=== PATIENT | male | born 1975 | race Caucasian/White ===

== ENCOUNTER 2018-01-31 15:39 | Inpatient (IN) | payer BC ==
[~2018-01-31] VITALS: Ht 167.6 cm; Wt 73.9 kg
[2018-01-31 17:00] VITALS: BP 119/67
[2018-01-31] MEDS ORDERED: BISACODYL 10 MG SUPP PR PRN (17:45)
[2018-01-31] MEDS ORDERED: ONDANSETRON 4 MG TAB (S0181) PO PRN (17:45)
[2018-01-31] MEDS ORDERED: SENNA 8.6 MG TAB (SENOKOT) PO PRN (17:45)
[2018-01-31] MEDS ORDERED: traMADol 50 MG TAB PO PRN (18:15)
[2018-01-31] MEDS ORDERED: SENN8.6T17 PO (18:20)
[2018-01-31] MEDS ORDERED: ELIQ5TAB PO (18:20)
[2018-01-31] MEDS ORDERED: ASPI1CHW2 PO (18:20)
[2018-01-31] MEDS ORDERED: ATOR40TA75 PO (18:20)
[2018-01-31] MEDS ORDERED: COLA100C5 PO (18:20)
[2018-01-31] MEDS ORDERED: ACET1TAB55 PO (18:21)
[2018-01-31] MEDS ORDERED: FAMO40TA3 PO (18:21)
[2018-01-31] MEDS ORDERED: TRAM50TA2 PO (18:21)
[2018-01-31] MEDS ORDERED: LACTULOSE 20 GM/30 ML SYRUP UD PO ONE (18:30)
--- NOTE | 2018-01-31 18:57 | HPEPDOC ---
Pipe Organ Builder Note DATE OF ADMISSION: Jan 31, 2018 at 16:55 SOURCE OF ADMISSION INFORMATION: [facility] records and patient CHIEF COMPLAINT: stroke HISTORY OF PRESENT ILLNESS: 42M no significant pmh who on 01-28-18 had acute onset of right sided weakness, facial droop, and aphasia. He was brought to [facility] where he was given tPA and transferred to [facility] where CTA revealed a left MCA occlusion. He underwent a successful thrombectomy performed by neurosurgery, was placed on neurochecks, and given IV antihypertensive medications. Hypercoagulable panels were sent and he was noted to have a family history of brother with stroke at 36. He was made NPO and evaluated by speech therapy who initially placed him on ground solids and honey thickened liquids. CTH following TPA on 01-29-18 revealed "Well demarcated infarct in the left basal ganglia/caudate head and mass effect on the left frontal horn. No evidence of hemorrhagic conversion. No hydrocephalus". ECHO did not reveal a PFO and EKG from 01-29-18 revealed 1st degree AB block with sinus bradycardia. A LINQ recorder was placed for suspected Afib and he was placed on a 6 month course of Eliquis. His right sided weakness improved and he was deemed medically appropriate for discharge to ARU. REVIEW OF SYSTEMS: The following is a completed review of systems and has been reviewed. Review of systems otherwise unremarkable. PAIN: Patient self reports no pain EYES: Negative for acute vision changes EARS, NOSE, & THROAT: negative for hearing loss, rhinorrhea, +dysphagia CARDIOVASCULAR: denies chest pain or palpitations PULMONARY: Negative. Denies shortness of breath. GASTROINTESTINAL: +constipation GENITOURINARY: Negative for dysuria or hematuria NEUROLOGICAL: right facial droop, RUE paresis SKIN: no rash PSYCHIATRIC: Unremarkable All other review of systems found to be negative. PAST MEDICAL HISTORY: none PAST SURGICAL HISTORY: none ALLERGIES: Please see below. MEDICATIONS: Please see below. 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 GENERAL: Pleasant and cooperative. No acute distress. HEENT: PERRL. Extraocular movements intact. Clear conjunctiva CARDIOVASCULAR: Regular rate and rhythm. No murmurs, rubs, or gallops LUNGS: Clear to auscultation bilaterally. No wheezes. No rhonchi ABDOMEN: Soft, nontender, nondistended. Positive bowel sounds. Normal active bowel sounds NEUROLOGICAL: Alert and oriented times three. Cranial nerves II through XII grossly intact. Sensation grossly intact EXTREMITIES: 4+/5 strength right upper extremity 5/5 left upper extremity, 5-/5 strength right lower extremity. 5/5 strength in left lower extremity. SKIN: intact IMAGING: Imaging documentation personally reviewed by record FUNCTIONAL STATUS: Premorbid: Independent with ADLs and ambulation On admission: Min Assist for feeding, upper body dressing, toileting, grooming, Min assist ambulating without AD, but hand-held assist GOALS: Independent without AD in ambulation and ADLs, improve RUE fine motor skills, advance diet, medical optimization, family training, assess for DME. ASSESSMENT:42-year-old M with no past medical history who presents status post stroke PLAN: 1. 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 neuro: s/p left MCA stroke s/p tPA and thrombectomy with RUE hemiparesis and dysphagia-f/u Dr. Hart [phone] 4-6 weeks -hypercoagulopathy w/u pending, +family history of CVA -continue statin, BP management, and Eliquis-medicine consulted -Loop recorder in place 3. cardio: no pmh oh HTN, however was managed with IV anti-hypertensice in acute care setting, will start Amlodpine with parameters and monitor 4. Resp: incentive spirometry, will do noc-ox testing to check for OZZY 5. GI ppx: protonix and bowel meds for constipation 6. DVT ppx: f/u admisison dopplers, on Eliquis 5mg BID for 6 months 7. Pain: Tramadol prn 8. Dispo: TBd POST ADMISSION PHYSICIAN EVALUATION: Medical and functional status: Description of medical status, medical assess ment: As above. Rehabilitation diagnosis and current and prior cold morbid medical conditions as above. Risk of complications and plans to mitigate them as above. Description of functional status current status is as above. Prior status as above. Status compared to preadmission: There are no clinically significant differences between the patient's current status and the information described on the preadmission screening document. Treatment plan anticipated: Treatment plan is as described above. Required disciplines including physical therapy, occupational therapy, others as noted ab ove Intensity of services: 3 hours a day, 6 days a week. Special considerations: There are no specific special or safety considerations that would likely preclude immediate implementation of an intensive r ehabilitation program or subsequently influence the plan of care. ATTESTATION: Considering all the information above, it is my best judgment that this patient requires intensive rehabilitation therapy as described above and an inpatient hospital environment due to the complexity of nursing, medical, and rehabilitation needs required by the patient. Furthermore, this patient can re asonably be expected to participate in an benefit from an inpatient rehabilitation stay with an interdisciplinary team approach to the delivery of rehabilitation care under the direction and supervision of rehabilitation physician. PROGNOSIS: Excellent ESTIMATED LENGTH OF STAY:7-10 days. PROJECTED DISCHARGE DESTINATION: Home with family support and any durable medical equipment required to increase functional safety and mobility. TIME SPENT COUNSELING AND COORDINATING INITIAL CARE: Greater than 70 minutes. Vital Signs HR: 69 98.4 119/67 97% resp 16 Home Medications Scheduled (Aspirin) 81 Mg Chw, 81 MG PO DAILY, (Reported) Apixaban Base (Eliquis) 5 Mg Tab, 5 MG PO BID, (Reported) Atorvastatin Calcium (Atorvastatin Calcium) 40 Mg Tab, 40 MG PO QHS, (Reported) Docusate Sodium (Colace) 100 Mg Cap, 100 MG PO BID, (Reported) Famotidine (Famotidine) 40 Mg Tab, 40 MG PO QHS, (Reported) Senna (Senna Laxative) 8.6 Mg Tab, 1 TAB PO BID, (Reported) Scheduled PRN Acetaminophen (Acetaminophen) 325 Mg Tab, 650 MG PO Q4H PRN for PAIN, (Reported) Tramadol HCl (Tramadol HCl) 50 Mg Tab, 25 MG PO Q6H PRN for PAIN, (Reported) RIRI CLARK MD Jan 31, 2018 18:54
--- NOTE | 2018-01-31 19:30 | CR.PDOC ---
General Date of Consultation: Jan 31, 2018 Attending Physician: MIKI HARDY MD Consultation REASON FOR CONSULTATION/CHIEF COMPLAINT: Medical management. HISTORY OF PRESENT ILLNESS: Patient is a 42-year-old man with no past medical history who is status post infarctive stroke diagnosed 01/28/2018 with receivable right-sided weakness, facial droop and aphasia. He was transferred from us in our [facility]. where he will receive TPA transferred also to a [facility] gas. CTA revealed a left MCA occlusion. There he successfully underwent thrombectomy performed by the neurosurgeons. Patient now transferred to our hospital rehabilitation unit for further rehabilitation care. At interview, patient denies any subjective symptoms. ALLERGIES: Please see below. HOME MEDICATIONS: Please see below. PAST MEDICAL HISTORY: Per HPI PAST SURGICAL HISTORY: 1. Left MCA occlusion, status post thrombectomy FAMILY HISTORY: Father: Diagnosed with coronary artery disease Siblings: Brother diagnosed with stroke SOCIAL HISTORY: Lives with his girlfriend currently employed at a [employer] Denies alcohol, smoking and denies illicit drug use. REVIEW OF SYSTEMS: 12 point review of systems negative other than that described in the body of HPI PHYSICAL EXAMINATION: VITAL SIGNS: Please see below. GENERAL APPEARANCE: Young man, lying calmly in bed, not in any apparent distress. He is not pale, anicteric and afebrile. right facial droop and with left sided weakness. HEENT: Atraumatic. Neck: Supple. LUNGS: Clear to auscultation bilaterally. CARDIOVASCULAR: S1 and 2 heard, no murmurs, rubs or gallops. ABDOMEN: Obese, soft, not tender, not distended. Bowel sounds normoactive. MUSCULOSKELETAL: Apparently within normal limits EXTREMITIES: No pedal edema, 2+ bilateral pedal pulses noted. NEUROLOGICAL: Awake, alert, oriented 3. right facial droop and with left sided weakness. power in both Right upper and lower extremities 3/5 PSYCHIATRIC: Normal affect LABORATORY DATA: Please see below. ASSESSMENT/PLAN: 1. Continue current management. This patient will be followed by Dr. El. 2. Thank you for the opportunity to take care of the patient. Vital Signs/I&O Vital Signs Date Time Temp Pulse Resp B/P (MAP) Pulse Ox O2 Delivery O2 Flow Rate FiO2 01/31/18 17:00 98.4 69 16 119/67 (84) 97 Room Air Allergies Coded Allergies: No Known Allergies (Unverified , 01/31/18) Home Medications Scheduled (Aspirin) 81 Mg Chw, 81 MG PO DAILY, (Reported) Apixaban Base (Eliquis) 5 Mg Tab, 5 MG PO BID, (Reported) Atorvastatin Calcium (Atorvastatin Calcium) 40 Mg Tab, 40 MG PO QHS, (Reported) Docusate Sodium (Colace) 100 Mg Cap, 100 MG PO BID, (Reported) Famotidine (Famotidine) 40 Mg Tab, 40 MG PO QHS, (Reported) Senna (Senna Laxative) 8.6 Mg Tab, 1 TAB PO BID, (Reported) Scheduled PRN Acetaminophen (Acetaminophen) 325 Mg Tab, 650 MG PO Q4H PRN for PAIN, (Reported) Tramadol HCl (Tramadol HCl) 50 Mg Tab, 25 MG PO Q6H PRN for PAIN, (Reported) MIKI HARDY MD Jan 31, 2018 19:30
[2018-01-31 20:00] VITALS: BP 113/61
[2018-01-31] MEDS ORDERED: BISACODYL 10 MG SUPP PR ONE (20:30)
--- NOTE | 2018-01-31 20:34 | REPVR ---
EXAM: US Bilateral Duplex Lower Extremity Veins EXAM DATE/TIME: 01/31/2018 7:41 PM CLINICAL HISTORY: 42 years old, male; Signs and symptoms; Other: Immoblization TECHNIQUE: Real-time duplex ultrasound of the Bilateral Lower Extremities with 2-D martinez scale, color Doppler flow and spectral waveform analysis. Complete exam focused on the bilateral lower extremity veins. COMPARISON: No relevant prior studies available. FINDINGS: Right deep veins: Unremarkable. The common femoral, femoral and popliteal veins are patent without thrombus. Normal compressibility, augmentation response and Doppler waveforms. Right superficial veins: Saphenofemoral junction is patent without thrombus. Left deep veins: Unremarkable. The common femoral, femoral and popliteal veins are patent without thrombus. Normal compressibility, augmentation response and Doppler waveforms. Left superficial veins: Saphenofemoral junction is patent without thrombus. Soft tissues: Unremarkable. IMPRESSION: No acute findings. No evidence of deep vein thrombosis. Electronically signed by: Yulia Emerson On 01/31/2018 20:34:55 PM
[2018-01-31] MEDS: DOCUSATE SODIUM 100 MG CAP PO SCH (20:50)
[2018-01-31] MEDS: ATORVASTATIN 20 MG TAB PO SCH (20:50)
[2018-01-31] MEDS: APIXABAN 5 MG TAB (ELIQUIS) PO SCH (20:50)
[2018-01-31] MEDS: CHLORHEXIDINE GLUCONATE 0.12 % 15ML UDC (PERIDEX ORAL RINSE) MT SCH (20:50)
[2018-01-31] MEDS: traZODone 50 MG TAB PO PRN (20:57)
[2018-01-31] MEDS ORDERED: ATORVASTATIN 20 MG TAB PO SCH (21:00)
[2018-01-31] MEDS ORDERED: HEPARIN SOD (PORCINE) 5000 UNITS/ML VIAL SQ SCH (21:00)
[2018-01-31 21:14] LABS: AMORPHOUS SEDIMENT SMALL (NEGATIVE); APPEARANCE, URINE CLOUDY (CLEAR); BACTERIA, URINE AUTO NEGATIVE (NEGATIVE); BILIRUBIN, URINE AUTO NEGATIVE (NEGATIVE); BLOOD, URINE BLOOD NEGATIVE (NEGATIVE); COLOR, URINE YELLOW (YELLOW); GLUCOSE, URINE (UA) AUTO NEGATIVE (NEGATIVE); KETONE, URINE AUTO NEGATIVE (NEGATIVE); LEUKOCYTE ESTERASE, URINE AUTO NEGATIVE (NEGATIVE); MUCUS, URINE SMALL (NEGATIVE); NITRITE, URINE AUTO NEGATIVE (NEGATIVE); PROTEIN, URINE AUTO NEGATIVE (NEGATIVE); RBC, URINE AUTO 1 /HPF (0-3); SPECIFIC GRAVITY URINE AUTO 1.017 (1.002-1.035); SQUAMOUS EPITHELIAL CELL UR AU 0 /HPF (0-6); WBC, URINE AUTO 0 /HPF (0-3)
[2018-01-31] MEDS: ACETAMINOPHEN TAB 650MG DOSE (2X325MG) PO PRN (22:23)
[2018-02-01 06:00] VITALS: BP 129/59
[2018-02-01 06:39] LABS: BASO % 0.5 % (0.0-1.0); EOS # 0.1 10^3/uL (0.0-0.50); EOS % 1.9 % (0.0-3.0); HEMATOCRIT 36.5 % (42.0-52.0); LYMPH % 31.9 % (24.0-44.0); MEAN CORPUSCULAR HEMOGLOBIN 33.4 pg (27.0-33.0); MEAN CORPUSCULAR HGB CONC 35.6 g/dl (32.0-36.5); MEAN CORPUSCULAR VOLUME 93.8 fl (80.0-96.0); MONO # 0.5 10^3/uL (0.0-0.8); MONO % 7.1 % (0.0-5.0); NEUTROPHILS # 3.7 10^3/uL (1.8-7.7); NEUTROPHILS % 58.1 % (36.0-66.0); PLATELET COUNT, AUTOMATED 208 10^3/uL (150-450); RED BLOOD COUNT 3.89 10^6/uL (4.30-6.10); WHITE BLOOD COUNT 6.3 10^3/uL (4.0-10.0)
[2018-02-01 07:06] LABS: ALBUMIN 3.3 GM/DL (3.2-5.2); ALT/SGPT 28 U/L (12-78); BILIRUBIN,TOTAL 0.6 MG/DL (0.2-1.0); BLOOD UREA NITROGEN 16 MG/DL (7-18); CALCIUM LEVEL 8.5 MG/DL (8.5-10.1); CARBON DIOXIDE LEVEL 29 MEQ/L (21-32); CHLORIDE LEVEL 109 MEQ/L (98-107); CREATININE FOR GFR 1.09 MG/DL (0.70-1.30); GLOMERULAR FILTRATION RATE > 60.0 (>60); GLUCOSE, FASTING 96 MG/DL (70-100); POTASSIUM SERUM 3.6 MEQ/L (3.5-5.1); SODIUM LEVEL 144 MEQ/L (136-145); TOTAL PROTEIN 6.1 GM/DL (6.4-8.2)
[2018-02-01] MEDS: amLODIPine 5 MG TAB PO SCH (08:35)
[2018-02-01] MEDS: APIXABAN 5 MG TAB (ELIQUIS) PO SCH ×2 (08:35→20:43)
[2018-02-01] MEDS: PANTOPRAZOLE 40MG TAB (PROTONIX) PO SCH (08:35)
[2018-02-01] MEDS: CHLORHEXIDINE GLUCONATE 0.12 % 15ML UDC (PERIDEX ORAL RINSE) MT SCH ×2 (08:36→20:43)
[2018-02-01] MEDS: DOCUSATE SODIUM 100 MG CAP PO SCH ×2 (08:36→21:00)
[2018-02-01] MEDS ORDERED: ASPIRIN 81 MG CHEW TABLET GT SCH (09:00)
--- NOTE | 2018-02-01 10:23 | NUR ---
Pt seen for cognitive/linguistic evaluation and clinical bedside swallow evaluation d/t admission to [facility] s/p CVA on 01/28/18. Pt. presents within normal limits for swallow function. No overt s/s of aspiration/penetration observed. Pt reported that he was eating regular solids and drinking regular thin liquids before transfer. Recommend: Regular solids and thin liquids. Pt presents with mild cog/ling deficits in the domains of memory, sequencing, judgement and reasoning. Speech therapy recommended. Addendum: 02/01/18 at 1027 by ELMER FRIEDMAN [facility] SP Amended: Links added.
[2018-02-01 14:00] VITALS: BP 108/61
--- NOTE | 2018-02-01 18:10 | IPN ---
DATE: 02/01/2018 SUBJECTIVE: Patient is seen and examined in the room today. Patient denied any acute complaints. Patient still feels there is residual weakness of the right upper extremity, but he denies any difficulty with swallowing. OBJECTIVE: VITAL SIGNS: Temperature 98.1, pulse 73, respirations 18, blood pressure 129/59, pulse oximetry 97% in room air. GENERAL: No sign of acute distress. Patient is alert, awake, comfortable. HEENT: Normocephalic, atraumatic. Extraocular motor grossly intact. CARDIOVASCULAR: Positive S1, S2, regular rate. LUNGS: Clear to auscultation bilaterally. ABDOMEN: Soft, nontender, nondistended. Bowel sounds present. EXTREMITIES: No edema appreciated. NEUROLOGIC: No right-sided facial droop noted. Muscle strength 5/5 bilaterally. Sensation to fine touch grossly intact. LABORATORY DATA: WBC 6.3, hemoglobin 13, hematocrit 36.5, platelet count is 208. Sodium is 144, potassium 3.6, chloride 109, carbon dioxide 29, BUN 16, creatinine 1.09, GFR greater than 60, fasting glucose 96, calcium 8.5. Total bilirubin 0.6, AST 18, ALT 28, alkaline phosphatase 33, total protein 6.1, albumin 3.3. ASSESSMENT AND PLAN: 1. Left middle cerebral artery (MCA) stroke, status post tPA and thrombectomy. Continue acute rehabilitation. On aspirin, Lipitor, Eliquis. 2. Deep vein thrombosis (DVT) prophylaxis, on Eliquis.
[2018-02-01 20:00] VITALS: BP 101/58
[2018-02-01] MEDS: ATORVASTATIN 20 MG TAB PO SCH (20:42)
[2018-02-01] MEDS: traZODone 50 MG TAB PO PRN (20:42)
[2018-02-01] MEDS: ACETAMINOPHEN TAB 650MG DOSE (2X325MG) PO PRN (22:46)
[2018-02-02 06:00] VITALS: BP 112/60
[2018-02-02] MEDS: APIXABAN 5 MG TAB (ELIQUIS) PO SCH ×2 (08:50→20:25)
[2018-02-02] MEDS: ASPIRIN 81 MG CHEW TABLET PO SCH (08:50)
[2018-02-02] MEDS: DOCUSATE SODIUM 100 MG CAP PO SCH ×2 (08:50→20:26)
[2018-02-02] MEDS: amLODIPine 5 MG TAB PO SCH (08:50)
[2018-02-02] MEDS: CHLORHEXIDINE GLUCONATE 0.12 % 15ML UDC (PERIDEX ORAL RINSE) MT SCH ×2 (08:50→20:27)
[2018-02-02] MEDS: PANTOPRAZOLE 40MG TAB (PROTONIX) PO SCH (08:51)
[2018-02-02 14:00] VITALS: BP 121/69
--- NOTE | 2018-02-02 17:53 | IPNPDOC ---
Text Note Date of Service The patient was seen on 02/02/18. NOTE SUBJECTIVE: Patient is seen and examined in the room today. Patient denied any acute complaints. Denies any difficulty with swallowing. He feels right upper extremity weakness is improving. OBJECTIVE: VITAL SIGNS: Listed below. GENERAL: No sign of acute distress. Patient is alert, awake, comfortable. HEENT: Normocephalic, atraumatic. Extraocular motor grossly intact. CARDIOVASCULAR: Positive S1, S2, regular rate. LUNGS: Clear to auscultation bilaterally. ABDOMEN: Soft, nontender, nondistended. Bowel sounds present. EXTREMITIES: No edema appreciated. NEUROLOGIC: No right-sided facial droop noted. Muscle strength 5/5 bilaterally. Sensation to fine touch grossly intact. LABORATORY DATA: Listed below. ASSESSMENT AND PLAN: #. Left middle cerebral artery (MCA) stroke, - Status post tPA and thrombectomy. - Continue acute rehabilitation. On aspirin, Lipitor, Eliquis. # Sinus bradycardia with first degree AV block. Asymptomatic # Rule of A fibrillation. Loop recorder in place. On eliquis. #. Deep vein thrombosis (DVT) prophylaxis, on Eliquis. VS,Fishbone, I+O VS, Fishbone, I+O Vital Signs Date Time Temp Pulse Resp B/P (MAP) Pulse Ox O2 Delivery O2 Flow Rate FiO2 02/02/18 14:00 98.7 60 18 121/69 (86) 97 Room Air I&O- Last 24 Hours up to 6 AM 02/02/18 06:00 Intake Total 600 ml Balance 600 ml CLIFF GONSALEZ DO Feb 02, 2018 17:53
[2018-02-02 20:00] VITALS: BP 112/66
[2018-02-02] MEDS: traZODone 50 MG TAB PO PRN (20:25)
[2018-02-02] MEDS: ATORVASTATIN 20 MG TAB PO SCH (20:25)
[2018-02-02] MEDS: ACETAMINOPHEN TAB 650MG DOSE (2X325MG) PO PRN (22:47)
[2018-02-03 06:00] VITALS: BP 90/68
[2018-02-03 06:57] LABS: HEMATOCRIT 33.4 % (42.0-52.0); HEMOGLOBIN 12.1 g/dl (13.5-17.5); MEAN CORPUSCULAR HEMOGLOBIN 33.2 pg (27.0-33.0); MEAN CORPUSCULAR HGB CONC 36.2 g/dl (32.0-36.5); MEAN CORPUSCULAR VOLUME 91.8 fl (80.0-96.0); PLATELET COUNT, AUTOMATED 199 10^3/uL (150-450); RED BLOOD COUNT 3.64 10^6/uL (4.30-6.10); WHITE BLOOD COUNT 6.8 10^3/uL (4.0-10.0)
[2018-02-03 07:08] LABS: BLOOD UREA NITROGEN 18 MG/DL (7-18); CALCIUM LEVEL 8.1 MG/DL (8.5-10.1); CARBON DIOXIDE LEVEL 28 MEQ/L (21-32); CHLORIDE LEVEL 111 MEQ/L (98-107); CREATININE FOR GFR 0.94 MG/DL (0.70-1.30); GLOMERULAR FILTRATION RATE > 60.0 (>60); GLUCOSE, FASTING 82 MG/DL (70-100); MAGNESIUM LEVEL 2.1 MG/DL (1.8-2.4); POTASSIUM SERUM 3.7 MEQ/L (3.5-5.1); SODIUM LEVEL 145 MEQ/L (136-145)
[2018-02-03] MEDS: DOCUSATE SODIUM 100 MG CAP PO SCH ×2 (09:00→21:00)
[2018-02-03] MEDS: amLODIPine 5 MG TAB PO SCH (09:00)
[2018-02-03] MEDS: CHLORHEXIDINE GLUCONATE 0.12 % 15ML UDC (PERIDEX ORAL RINSE) MT SCH ×2 (10:14→21:00)
[2018-02-03] MEDS: APIXABAN 5 MG TAB (ELIQUIS) PO SCH ×2 (10:14→21:01)
[2018-02-03] MEDS: PANTOPRAZOLE 40MG TAB (PROTONIX) PO SCH (10:14)
[2018-02-03] MEDS: ASPIRIN 81 MG CHEW TABLET PO SCH (10:14)
[2018-02-03 10:16] VITALS: BP 106/58
[2018-02-03 14:00] VITALS: BP 101/57
--- NOTE | 2018-02-03 14:08 | IPNPDOC ---
Text Note Date of Service The patient was seen on 02/03/18. NOTE SUBJECTIVE: Patient is seen and examined in the room today. Patient states his right arm weakness is improving. Yesterday he had discomfort at mid-chest where he had loop recorder placement. He had 1 dose of narcotic. denied any acute complaints. Denies any difficulty with swallowing. He feels right upper extremity weakness is improving. OBJECTIVE: VITAL SIGNS: Listed below. GENERAL: No sign of acute distress. Patient is alert, awake, comfortable. HEENT: Normocephalic, atraumatic. Extraocular motor grossly intact. CARDIOVASCULAR: Positive S1, S2, regular rate. LUNGS: Clear to auscultation bilaterally. ABDOMEN: Soft, nontender, nondistended. Bowel sounds present. MSK: Loop recorder at mid upper chest. No erythema or swelling around the insertion site. No peripheral edema appreciated. NEUROLOGIC: No right-sided facial droop noted. Muscle strength 5/5 bilaterally. Sensation to fine touch grossly intact. LABORATORY DATA: Listed below. ASSESSMENT AND PLAN: #. Left middle cerebral artery (MCA) stroke, - Status post tPA and thrombectomy. - Continue acute rehabilitation. On aspirin, Lipitor, Eliquis. # Hypotension - Patient had dose of narcotic yesterday. Patient states he has good oral intake. Continue to monitor. # Sinus bradycardia with first degree AV block. Asymptomatic # Rule of A fibrillation. Loop recorder in place. On eliquis. #. Deep vein thrombosis (DVT) prophylaxis, on Eliquis. VS,Fishbone, I+O VS, Fishbone, I+O Laboratory Tests 02/03/18 06:31 Red Blood Count 3.64 L, Mean Corpuscular Volume 91.8, Mean Corpuscular Hemoglobin 33.2 H, Mean Corpuscular Hemoglobin Concent 36.2, Red Cell Dist ribution Width 11.9, Calcium Level 8.1 L Vital Signs Date Time Temp Pulse Resp B/P (MAP) Pulse Ox O2 Delivery O2 Flow Rate FiO2 02/03/18 10:16 56 106/58 (74) 02/03/18 06:00 97.9 18 97 Room Air I&O- Last 24 Hours up to 6 AM 02/03/18 06:00 Intake Total 1320 ml Balance 1320 ml CLIFF GONSALEZ DO Feb 03, 2018 14:08
[2018-02-03 20:00] VITALS: BP 110/55
[2018-02-03] MEDS: ATORVASTATIN 20 MG TAB PO SCH (21:00)
[2018-02-04 06:00] VITALS: BP 100/55
[2018-02-04] MEDS: DOCUSATE SODIUM 100 MG CAP PO SCH ×2 (08:23→19:56)
[2018-02-04] MEDS: CHLORHEXIDINE GLUCONATE 0.12 % 15ML UDC (PERIDEX ORAL RINSE) MT SCH ×2 (08:26→19:56)
[2018-02-04] MEDS: amLODIPine 5 MG TAB PO SCH (08:26)
[2018-02-04] MEDS: PANTOPRAZOLE 40MG TAB (PROTONIX) PO SCH (08:26)
[2018-02-04] MEDS: APIXABAN 5 MG TAB (ELIQUIS) PO SCH ×2 (08:26→19:56)
[2018-02-04] MEDS: ASPIRIN 81 MG CHEW TABLET PO SCH (08:26)
[2018-02-04 09:00] VITALS: BP 129/69
[2018-02-04 14:00] VITALS: BP 104/58
[2018-02-04] MEDS: traZODone 50 MG TAB PO PRN (19:55)
[2018-02-04] MEDS: ATORVASTATIN 20 MG TAB PO SCH (19:55)
[2018-02-04 20:00] VITALS: BP 100/56
[2018-02-05 05:30] VITALS: BP 112/56
[2018-02-05 07:56] VITALS: BP 104/57
[2018-02-05 07:57] VITALS: BP 104/57
[2018-02-05] MEDS: amLODIPine 5 MG TAB PO SCH (07:57)
[2018-02-05] MEDS: APIXABAN 5 MG TAB (ELIQUIS) PO SCH (07:58)
[2018-02-05] MEDS: ASPIRIN 81 MG CHEW TABLET PO SCH (07:58)
[2018-02-05] MEDS: PANTOPRAZOLE 40MG TAB (PROTONIX) PO SCH (07:58)
[2018-02-05] MEDS: DOCUSATE SODIUM 100 MG CAP PO SCH (07:58)
[2018-02-05] MEDS: CHLORHEXIDINE GLUCONATE 0.12 % 15ML UDC (PERIDEX ORAL RINSE) MT SCH (07:59)
[2018-02-05 14:20] VITALS: BP 98/57
[2018-02-05] MEDS ORDERED: ELIQ5TAB PO (14:46)
[2018-02-05] MEDS ORDERED: ASPI1CHW2 PO (14:46)
[2018-02-05] MEDS ORDERED: FAMO40TA3 PO (14:46)
[2018-02-05] MEDS ORDERED: ATOR40TA75 PO (14:46)
[2018-02-05] MEDS ORDERED: TRAM50TA2 PO (14:46)
--- NOTE | 2018-02-05 16:51 | IPNPDOC ---
PM&R Progress Note DATE OF SERVICE: Feb 05, 2018 Armhole Raiser Lockstitch Progress Note Subjective: Patient being discharged home today, did very well in therapy and will get outpatient PATCH WASHER and PT. REVIEW OF SYSTEMS: The following is a completed review of systems and has been reviewed. Review of systems otherwise unremarkable. PAIN: Patient self reports no pain EYES: Negative for acute vision changes EARS, NOSE, & THROAT: negative for hearing loss, rhinorrhea, +dysphagia CARDIOVASCULAR: denies chest pain or palpitations PULMONARY: Negative. Denies shortness of breath. GASTROINTESTINAL: +constipation GENITOURINARY: Negative for dysuria or hematuria NEUROLOGICAL: right facial droop, RUE paresis SKIN: no rash PSYCHIATRIC: Unremarkable All other review of systems found to be negative. PHYSICAL EXAMINATION: VITAL SIGNS: Please see below. GENERAL: Pleasant and cooperative. No acute distress. HEENT: PERRL. Extraocular movements intact. Clear conjunctiva CARDIOVASCULAR: Regular rate and rhythm. No murmurs, rubs, or gallops LUNGS: Clear to auscultation bilaterally. No wheezes. No rhonchi ABDOMEN: Soft, nontender, nondistended. Positive bowel sounds. Normal active bowel sounds NEUROLOGICAL: Alert and oriented times three. Cranial nerves II through XII grossly intact. Sensation grossly intact EXTREMITIES: 4+/5 strength right upper extremity 5/5 left upper extremity, 5-/5 strength right lower extremity. 5/5 strength in left lower extremity. SKIN: intact ASSESSMENT:42-year-old M with no past medical history who presents status post stroke PLAN: 1. 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 neuro: s/p left MCA stroke s/p tPA and thrombectomy with RUE hemiparesis and dysphagia-f/u Dr. Hart [phone] 4-6 weeks -hypercoagulopathy w/u pending, +family history of CVA -continue statin, BP management, and Eliquis-medicine consulted -Loop recorder in place- has outpatient cardiology f/u 3. cardio: no pmh oh HTN and good BPs while in ARU 4. Resp: incentive spirometry 5. GI ppx: protonix and bowel meds for constipation 6. DVT ppx: admisison dopplers negative, on Eliquis 5mg BID for 6 months 7. Pain: Tramadol prn 8. Dispo: 02-05-18 Allergies Coded Allergies: No Known Allergies (Unverified , 01/31/18) Vital Signs Vital Signs Date Time Temp Pulse Resp B/P (MAP) Pulse Ox O2 Delivery O2 Flow Rate FiO2 02/05/18 14:20 97.9 66 19 98/57 (71) 96 02/05/18 05:30 Room Air Microbiology Microbiology 01/31/18 Urine Culture - Final, Complete Current Medications Current Medications Current Medications Acetaminophen (Tylenol Tab) 650 mg Q4HP PRN PO MILD PAIN (PS 1-4) Last administered on 02/02/18at 22:47; Start 01/31/18 at 17:45; Stop 02/05/18 at 1 6:15; Status DC Amlodipine Besylate (Norvasc) 5 mg DAILY PO Last administered on 02/04/18at 08:26; Start 02/01/18 at 09:00; Stop 02/05/18 at 16:15; Status DC Apixaban (Eliquis) 5 mg BID PO Last administered on 02/05/18at 07:58; Start 01/31/18 at 21:00; Stop 02/05/18 at 16:15; Status DC Aspirin (Aspirin Chewable) 81 mg DAILY GT Last administered on 02/01/18at 08:35; Start 02/01/18 at 09:00; Stop 02/01/18 at 16:04; Status DC Aspirin (Aspirin Chewable) 81 mg DAILY PO Last administered on 02/05/18at 07:58; Start 02/02/18 at 09:00; Stop 02/05/18 at 16:15; Status DC Atorvastatin Calcium (Lipitor) 80 mg QHS PO ; Start 01/31/18 at 21:00; Stop 01/31/18 at 21:00; Status DC Atorvastatin Calcium (Lipitor) 80 mg QHS PO Last administered on 02/04/18at 19:55; Start 01/31/18 at 21:00; Stop 02/05/18 at 16:15; Status DC Bisacodyl (Dulcolax Suppository) 10 mg DAILYPRN PRN MD CONSTIPATION; Start 01/31/18 at 17:45; Stop 02/05/18 at 16:15; Status DC Chlorhexidine Gluconate (Peridex Oral Rinse) 15 ml BID MT Last administered on 02/05/18at 07:59; Start 01/31/18 at 21:00; Stop 02/05/18 at 16:15; Status DC Docusate Sodium (Colace) 100 mg BID PO Last administered on 02/02/18at 20:26; Start 01/31/18 at 21:00; Stop 02/05/18 at 16:15; Status DC Heparin Sodium (Porcine) (Heparin) 5,000 units Q12H SQ ; Start 01/31/18 at 21:00; Stop 01/31/18 at 21:00; Status DC Home Med (Med Rec Complete!) ASDIRECTED XX ; Start 01/31/18 at 18:30; Stop 01/31/18 at 18:30; Status DC Ondansetron HCl (Zofran) 4 mg Q6HP PRN PO NAUSEA; Start 01/31/18 at 17:45; Stop 01/31/18 at 18:09; Status DC Pantoprazole Sodium (Protonix) 40 mg DAILY PO Last administered on 02/05/18at 07:58; Start 02/01/18 at 09:00; Stop 02/05/18 at 16:15; Status DC Senna (Senokot) 1 tab BIDP PRN PO CONSTIPATION; Start 01/31/18 at 17:45; Stop 02/05/18 at 16:15; Status DC Tramadol HCl (Ultram) 50 mg Q8HP PRN PO MODERATE PAIN (PS 5-7) Last administered on 02/02/18at 20:26; Start 01/31/18 at 18:15; Stop 02/05/18 at 16:15; Status DC Trazodone HCl (Desyrel) 50 mg QHSP PRN PO INSOMNIA Last administered on 02/04/18at 19:55; Start 01/31/18 at 18:15; Stop 02/05/18 at 16:15; Status DC RIRI CLARK MD Feb 05, 2018 16:51
--- NOTE | 2018-02-10 10:32 | PMRDS ---
DATE OF ADMISSION: 01/31/2018 DATE OF DISCHARGE: 02/05/2018 DISCHARGE DIAGNOSIS/CHIEF COMPLAINT: Stroke. HISTORY OF PRESENT ILLNESS: This is a 42-year-old man with no significant past medical history who on 01/28/2018 had acute onset of right-sided weakness, facial droop, and aphasia. He was brought to [facility] where he was given tPA and transferred to [facility] where a CTA revealed a left middle cerebral artery (MCA) occlusion. He underwent a successful thrombectomy performed by neurosurgery, was placed on neurological checks, and given IV antihypertensive medications. Hypercoagulable panels were sent and he was noted to have a family history of a brother with stroke at age 36. He was made nothing by mouth and evaluated by speech therapy who initially placed him on ground solids and honey-thickened liquids. CTH following tPA on 01/29/2018 revealed, "Well demarcated infarct in the left basal ganglia/caudate head and mass effect on the left frontal horn. No evidence of hemorrhagic conversion. No hydrocephalus." Echo did not reveal a patent foramen ovale (PFO) and EKG from 01/29/2018 revealed first degree atrioventricular (AV) block with sinus bradycardia. A LINQ recorder was placed for suspected atrial fibrillation and he was placed on a 6-month course of Eliquis. His right-sided weakness improved and he was deemed medically appropriate for discharge to acute rehabilitation unit (ARU). PAST MEDICAL HISTORY: None. HOSPITAL COURSE: The patient was admitted and enrolled in a comprehensive physical therapy/occupational therapy (PT/OT), speech and language pathology program. He received 24-hour nursing supervision and weekly team meetings were held. Patient was medically stable throughout his hospital course. His admission Dopplers were negative for deep venous thrombosis (DVT) and he was maintained on his Eliquis. He was quickly upgraded to a regular diet and thin liquids. His blood pressures were well controlled and did not require any oral antihypertensive medication. He was maintained on tramadol for pain and made quick gains in therapy and was deemed medically and functionally safe to return to home on 02/05/2018. DISCHARGE MEDICATIONS: - Eliquis - aspirin - atorvastatin - famotidine - tramadol FUNCTIONAL HISTORY: Upon discharge, patient was independent without an assistive device in ambulation, able to ambulate 1000 feet, negotiate stairs, run on the treadmill, and in occupational therapy was also independent with feeding, grooming, and all activities of daily living (ADL) tasks. It was recommended that he receive outpatient speech and language pathology for cognition and processing and otherwise was deemed functionally stable to return to home.
== END 2018-02-05 16:00 | disposition home or self-care (01) | DRG 58 ==
LOC: M PM&R 16:55
PROVIDERS: ADMIT Physical Medicine & Rehabilitation; ATTEND Physical Medicine & Rehabilitation
DX: I69.351 Hemiplegia and hemiparesis following cerebral infarction affecting right dominant side (principal); I69.391 Dysphagia following cerebral infarction; I48.91 Unspecified atrial fibrillation; Z79.01 Long term (current) use of anticoagulants; Z79.899 Other long term (current) drug therapy